=== PATIENT | male | born 1965 | race American Indian/Alaskan Native ===

== ENCOUNTER 2016-07-11 15:25 | Emergency (ER) | payer MEDICAID ==
[2016-07-11 17:16] LABS: Bilirubin,Urine NEG (Negative); Blood,Urine NEG (Negative); Ketones,Urine NEG (Negative); Leukocyte Esterase,Urine NEG (Negative); Mucus,Urine FEW /HPF; Nitrite,Urine NEG (Negative); Protein,Urine <15 mg/dL mg/dL (Negative); Urobilinogen,Urine < 2.0 mg/dL (<2.0)
[2016-07-11 17:54] LABS: Basophils % (Auto) 1.2 % (0.0-1.8); Eosinophils % (Auto) 2.1 % (0.0-4.3); Hematocrit 42.4 % (35.5-45.6); Hemoglobin 13.9 gm/dl (11.8-15.2); Mean Corpuscular HGB Conc 33 % (32-34); Mean Corpuscular Hemoglobin 32 pg (28-32); Mean Corpuscular Volume 98 fl (84-94); Platelet Count 212 K/mm3 (140-440); Red Blood Count 4.33 M/mm3 (3.65-5.03); Red Cell Distribution Width 13.4 % (13.2-15.2); White Blood Count 7.3 K/mm3 (4.5-11.0)
[2016-07-11 18:11] LABS: Albumin 3.9 g/dL (3.9-5); Albumin/Globulin Ratio 1.4 %; Alkaline Phosphatase 59 units/L (35-129); Anion Gap 18 mmol/L; BUN/Creatinine Ratio 16.66; Bilirubin,Total 0.3 mg/dL (0.1-1.2); Blood Urea Nitrogen 15 mg/dL (9-20); Calcium 8.7 mg/dL (8.4-10.2); Carbon Dioxide 24 mmol/L (22-30); Chloride 103.7 mmol/L (98-107); Glucose 122 mg/dL (75-100); Potassium 3.7 mmol/L (3.6-5.0); Sodium 142 mmol/L (137-145); Total Protein 6.7 g/dL (6.3-8.2)
[2016-07-11 18:25] LABS: Alanine Aminotransferase 37 units/L (7-56)
[2016-07-11] MEDS ORDERED: SUBLIMAZE IV ONE (22:48)
[2016-07-11] MEDS ORDERED: NACL 0.9% 1000 ML 1,000 ML IV ONE (22:48)
[2016-07-11] MEDS ORDERED: ZOFRAN IV ONE (22:48)
--- NOTE | 2016-07-11 22:54 | Emergency Department Report ---
HPI - General Chief Complaint: Dizziness Time Seen by Provider: 07/11/16 22:39 - HPI HPI: Room 19 The patient is a 51-year-old male presenting with a chief complaint of abdominal pain and diarrhea. The patient states his symptoms began 7 days ago with epigastric abdominal pain that is sharp and intermittent in nature. The patient states he also developed diarrhea and has had approximately 4 loose stools today. Patient denies melena. Patient states 2 nights ago he developed nausea vomiting. The patient admits to occasional cold sweats but denies a fever. The patient states today while in [facility] he began to feel dizzy and almost fell, subsequently his financial sales associate brought him to the emergency department for evaluation. The patient states she has had a formed stool today Location: Abdomen Duration: 7 days intermittently Quality: Sharp Severity: Moderate Modifying factors: [see above] Context: [see above] Mode of transportation: [not driving] ED Past Medical Hx - Past Medical History Previous Medical History?: Yes Hx Hypertension: Yes Hx Psychiatric Treatment: Yes (depression) Hx COPD: Yes (no home O2) Additional medical history: chronic back pain and right hip arthritis - Surgical History Past Surgical History?: Yes Additional Surgical History: Right wrist orthopedic repair, left rotator cuff surgery - Family History Family history: no significant - Social History Smoking Status: Former Smoker (none 3 months) Substance Use Type: None (denies illicit drug use) - Medications Home Medications: Home Medications Medication Instructions Recorded Confirmed Last Taken Type amLODIPine [Norvasc] 1 mg PO DAILY 06/19/14 07/12/16 1 Day Ago History 25 Diphenoxylate HCl/Atropine 2 each PO QID PRN #20 tablet 07/12/16 Unknown Rx [Lomotil 2.5-0.025 mg Tablet] traMADol [Ultram] 50 mg PO Q6HR PRN #14 tablet 07/12/16 Unknown Rx ED Review of Systems ROS: Stated complaint: DIZZINESS Other details as noted in HPI Comment: All other systems reviewed and negative Constitutional: chills. denies: fever Eyes: denies: eye pain, eye discharge, vision change ENT: denies: ear pain, throat pain Respiratory: denies: cough, shortness of breath, wheezing Cardiovascular: denies: chest pain, palpitations Endocrine: no symptoms reported Gastrointestinal: abdominal pain, nausea, vomiting, diarrhea Genitourinary: denies: urgency, dysuria Musculoskeletal: myalgia Skin: denies: rash, lesions Neurological: denies: headache, weakness, paresthesias Psychiatric: denies: anxiety, depression Hematological/Lymphatic: denies: easy bleeding, easy bruising Physical Exam - Physical Exam Vital Signs: Vital Signs 07/11/16 07/11/16 07/11/16 16:25 16:30 22:39 Temperature 98.1 F Pulse Rate 87 80 Respiratory 20 18 Rate Blood Pressure 133/89 Blood Pressure 120/81 122/83 [Right] O2 Sat by Pulse 96 97 Oximetry 07/11/16 22:41 Temperature Pulse Rate Respiratory 18 Rate Blood Pressure Blood Pressure [Right] O2 Sat by Pulse 97 Oximetry Physical Exam: GENERAL: The patient is well-developed well-nourished male lying on stretcher not appearing to be in acute distress. [] HEENT: Normocephalic. Atraumatic. Extraocular motions are intact. NECK: Supple. Trachea midline CHEST/LUNGS: Clear to auscultation. There is no respiratory distress noted. HEART/CARDIOVASCULAR: Regular. There is no tachycardia. There is no gallop rub or murmur. ABDOMEN: Abdomen is soft, with mild discomfort to palpation in the epigastric region only. Abdomen is otherwise soft and nontender. Patient has normal bowel sounds. There is no abdominal distention. SKIN: There is no rash. There is no edema. There is no diaphoresis. NEURO: The patient is awake, alert, and oriented. The patient is cooperative. The patient has normal speech MUSCULOSKELETAL: There is no evidence of acute injury. ED Course Vital Signs 07/11/16 07/11/16 07/11/16 16:25 16:30 22:39 Temperature 98.1 F Pulse Rate 87 80 Respiratory 20 18 Rate Blood Pressure 133/89 Blood Pressure 120/81 122/83 [Right] O2 Sat by Pulse 96 97 Oximetry 07/11/16 22:41 Temperature Pulse Rate Respiratory 18 Rate Blood Pressure Blood Pressure [Right] O2 Sat by Pulse 97 Oximetry ED Medical Decision Making - Lab Data Result diagrams: 07/11/16 17:38 07/11/16 17:38 Laboratory Tests 07/11/16 07/11/16 07/11/16 16:40 17:38 17:38 WBC 7.3 RBC 4.33 Hgb 13.9 Hct 42.4 MCV 98 H MCH 32 MCHC 33 RDW 13.4 Plt Count 212 Lymph % (Auto) 25.7 Baker % (Auto) 7.7 H Eos % (Auto) 2.1 Baso % (Auto) 1.2 Lymph # 1.9 Baker # 0.6 Eos # 0.2 Baso # 0.1 Seg Neutrophils % 63.3 Seg Neutrophils # 4.6 Sodium 142 Potassium 3.7 Chloride 103.7 Carbon Dioxide 24 Anion Gap 18 BUN 15 Creatinine 0.9 Estimated GFR > 60 BUN/Creatinine Ratio 16.66 Glucose 122 H Calcium 8.7 Total Bilirubin 0.3 AST 40 ALT 37 Alkaline Phosphatase 59 Total Creatine Kinase CK-MB (CK-2) CK-MB (CK-2) Rel Index Troponin T Total Protein 6.7 Albumin 3.9 Albumin/Globulin Ratio 1.4 Amylase Lipase Urine Color Yellow Urine Turbidity Clear Urine pH 5.0 Ur Specific [place] 1.020 Urine Protein <15 mg/dl Urine Glucose (UA) Neg Urine Ketones Neg Urine Blood Neg Urine Nitrite Neg Urine Bilirubin Neg Urine Urobilinogen < 2.0 Ur Leukocyte Esterase Neg Urine WBC (Auto) 0.0 Urine RBC (Auto) 2.0 Urine Mucus Few 07/11/16 07/11/16 22:39 22:40 WBC RBC Hgb Hct MCV MCH MCHC RDW Plt Count Lymph % (Auto) Baker % (Auto) Eos % (Auto) Baso % (Auto) Lymph # Baker # Eos # Baso # Seg Neutrophils % Seg Neutrophils # Sodium Potassium Chloride Carbon Dioxide Anion Gap BUN Creatinine Estimated GFR BUN/Creatinine Ratio Glucose Calcium Total Bilirubin AST ALT Alkaline Phosphatase Total Creatine Kinase 942 H CK-MB (CK-2) 4.6 H CK-MB (CK-2) Rel Index 0.4 Troponin T < 0.010 Total Protein Albumin Albumin/Globulin Ratio Amylase 90 Lipase 43 Urine Color Urine Turbidity Urine pH Ur Specific [place] Urine Protein Urine Glucose (UA) Urine Ketones Urine Blood Urine Nitrite Urine Bilirubin Urine Urobilinogen Ur Leukocyte Esterase Urine WBC (Auto) Urine RBC (Auto) Urine Mucus - EKG Data -: EKG Interpreted by Me EKG shows normal: sinus rhythm Rate: normal - EKG Data When compared to previous EKG there are: previous EKG unavailable Interpretation: normal EKG - Radiology Data Radiology results: report reviewed (CT abdomen and pelvis), image reviewed (CT abdomen and pelvis) CT abdomen and pelvis (read by radiologist)-left renal cyst. Findings suggestive of constipation. - Differential Diagnosis pancreatitis, gastroenteritis, peptic ulcer disease, ACS Critical care attestation.: If time is entered above; I have spent that time in minutes in the direct care of this critically ill patient, excluding procedure time. ED Disposition Clinical Impression: Diarrhea, Abdominal pain Disposition: DISCHARGED TO HOME OR SELFCARE Is pt being admited?: No Does the pt Need Aspirin: No Condition: Stable Instructions: Acute Diarrhea (ED), Abdominal Pain (ED) Additional Instructions: Return to the emergency department immediately should you develop worsening symptoms, fever, inability to tolerate food or liquid or any other concerns. Prescriptions: Diphenoxylate HCl/Atropine [Lomotil 2.5-0.025 mg Tablet] 2 each PO QID PRN #20 tablet PRN Reason: Diarrhea traMADol [Ultram] 50 mg PO Q6HR PRN #14 tablet PRN Reason: Pain Referrals: PRIMARY CARE,MD [Primary Care Provider] - 3-5 Days LETITIA SOUZA MD [Staff Physician] - 3-5 Days (Dr. Souza is a central sterile technician. Please follow up with him for further evaluation) Time of Disposition: 02:27
[2016-07-11 22:59] LABS: Creatine Kinase MB 4.6 ng/mL (0.0-4.0)
[2016-07-11 23:00] LABS: Creatine Kinase 942 units/L (55-170); Lipase 43 units/L (13-60)
--- NOTE | 2016-07-12 02:08 | Cat Scan Report ---
FINAL REPORT EXAM: CT ABDOMEN PELVIS W CON HISTORY: epigastric abdominal pain, nausea vomiting diarrhe TECHNIQUE: Spiral CT scanning of the abdomen and pelvis after the uneventful administration of IV contrast. Multiplanar reformations. 100 mL Omnipaque IV. PRIORS: 27 August 2015. FINDINGS: Abdomen: Visualized lung bases show mild atelectatic change or scarring bilaterally. Mild cardiomegaly. No radiopaque gallstones. Liver without significant abnormality. Spleen without significant abnormality. Pancreas without significant abnormality. Left renal cyst measures approximately 1.4 cm about the same. Right kidney grossly unremarkable. Adrenal glands without significant abnormality. Pelvis: Bowel grossly unremarkable, with moderate-large amount of retained stool. Appendix within normal limits. No significant free peritoneal fluid or apparent adenopathy. Abdominal aorta non-aneurysmal. Degenerative changes in thoracolumbar spine. IMPRESSION: 1. Left renal cyst. 2. Findings suggestive of constipation.
[2016-07-12 02:11] VITALS: BP 122/72
== END 2016-07-12 02:51 | disposition home or self-care (01) ==
LOC: ED 15:25
DX: R10.13 Epigastric pain (principal); R19.7 Diarrhea, unspecified; I10 Essential (primary) hypertension; J44.9 Chronic obstructive pulmonary disease, unspecified; F32.9 Major depressive disorder, single episode, unspecified; Z87.891 Personal history of nicotine dependence
CPT/HCPCS: 36415; 74177; 80053; 81001; 82150; 82550; 82553; 83690; 84484; 85025; 93005; 93010; 96361; 96374; 96375; 99284; J2405; J3010; J7030; Q9967

== ENCOUNTER 2016-07-20 20:11 | Emergency (ER) | payer MEDICAID ==
[2016-07-20] MEDS ORDERED: TORADOL IM ONE (22:38)
[2016-07-20] MEDS ORDERED: NORCO 5/325 PO ONE (22:38)
--- NOTE | 2016-07-20 22:47 | Emergency Department Report ---
ED Back Pain/Injury HPI - General Chief Complaint: Extremity Injury, Upper Stated Complaint: NECK/BACK PAIN Time Seen by Provider: 07/20/16 21:34 Source: patient Limitations: No Limitations - History of Present Illness Initial Comments: 51-year-old male past medical history cervical radiculopathy, chronic back pain , herniated disks presents with complaint of one day of radiating pain from his lower back and neck. Patient denies any falls denies any acute trauma. Denies any loss of bladder or bowel control denies any saddle paresthesias. Patient is fully ambulatory without assistance. Patient states that he is feeling the chronic pain that he experiences on a semi-frequent basis every few weeks, states he has pain with associated tingling down bilateral arms radiating from neck, also has similar symptoms radiating from lower back down to both buttock regions. Patient states he had an MRI a year ago at [facility] which showed multiple herniated disks in his cervical and lumbar spine. Patient states that he has not medicated himself with any [id number] medicines for pain. Denies having had follow-up with a orthopedic surgeon or neurosurgeon for herniated disks. Denies nausea no vomiting no dysuria no fever no chills, denies any chest pain, palpitations no shortness of breath. Denies any photo or phonophobia, patient is able to flex and extend his neck without difficulty but it does reproduce the pain. Patient states that bending down or flexing his back makes pain in his lower back worse. MD Complaint: back pain -: year(s) (5) Similar Symptoms Previously: Yes Place: home Radiation: buttocks, left leg, right leg Severity: moderate Severity scale (0 -10): 7 Quality: aching, tingling Improves With: none Worsens With: none Context: while lifting, turning/twisting, bending - Related Data Home Medications Medication Instructions Recorded Confirmed Last Taken amLODIPine [Norvasc] 1 mg PO DAILY 06/19/14 07/12/16 1 Day Ago 25 Previous Rx's Medication Instructions Recorded Last Taken Type Diphenoxylate HCl/Atropine 2 each PO QID PRN #20 tablet 07/12/16 Unknown Rx [Lomotil 2.5-0.025 mg Tablet] traMADol [Ultram] 50 mg PO Q6HR PRN #14 tablet 07/12/16 Unknown Rx HYDROcodone/APAP 5-325 [[place] 1 each PO Q6HR PRN #12 tablet 07/20/16 Unknown Rx 5/325] Naproxen [Naproxen TAB] 250 mg PO BID PRN #20 tablet 07/20/16 Unknown Rx Allergies Allergy/AdvReac Type Severity Reaction Status Date / Time ibuprofen Allergy Hives Verified 12/16/15 11:36 Penicillins Allergy Shortness Verified 12/16/15 11:36 of Breath ED Review of Systems ROS: Stated complaint: NECK/BACK PAIN Other details as noted in HPI ED Past Medical Hx - Past Medical History Hx Hypertension: Yes Hx Psychiatric Treatment: Yes (depression) Hx COPD: Yes (no home O2) Additional medical history: chronic back pain and right hip arthritis - Surgical History Additional Surgical History: Right wrist orthopedic repair, left rotator cuff surgery - Social History Smoking Status: Former Smoker (none 3 months) Substance Use Type: None (denies illicit drug use) - Medications Home Medications: Home Medications Medication Instructions Recorded Confirmed Last Taken Type amLODIPine [Norvasc] 1 mg PO DAILY 06/19/14 07/12/16 1 Day Ago History 25 Diphenoxylate HCl/Atropine 2 each PO QID PRN #20 tablet 07/12/16 Unknown Rx [Lomotil 2.5-0.025 mg Tablet] traMADol [Ultram] 50 mg PO Q6HR PRN #14 tablet 07/12/16 Unknown Rx HYDROcodone/APAP 5-325 [[place] 1 each PO Q6HR PRN #12 tablet 07/20/16 Unknown Rx 5/325] Naproxen [Naproxen TAB] 250 mg PO BID PRN #20 tablet 07/20/16 Unknown Rx ED Physical Exam - General Limitations: No Limitations ED Course Vital Signs 07/20/16 07/20/16 20:53 23:37 Temperature 97.7 F Pulse Rate 79 72 Respiratory 18 16 Rate Blood Pressure 151/106 Blood Pressure 123/79 [Left] O2 Sat by Pulse 100 95 Oximetry ED Medical Decision Making - Medical Decision Making A/P: Acute on chronic cervical radiculopathy, lumbar radiculopathy 1-will refer patient to primary care and orthopedics for follow-up 2-patient has no signs of cord compression or cauda equina no bladder overflow no bowel incontinence has good rectal tone and able to ambulate independently without assistance. I educated pt on symptoms of cord compression and advised him to return Shahbaz fro any signs of paralysis, bowel or bladder incontinence 3-Case d/w Dr. Terry 4-naproxen and norco short course PRN for pain Critical care attestation.: If time is entered above; I have spent that time in minutes in the direct care of this critically ill patient, excluding procedure time. ED Disposition Clinical Impression: Cervical radicular pain, Lumbar radicular pain Disposition: DISCHARGED TO HOME OR SELFCARE Is pt being admited?: No Does the pt Need Aspirin: No Condition: Stable Instructions: Lumbar Radiculopathy (ED), Cervical Radiculopathy (ED) Prescriptions: HYDROcodone/APAP 5-325 [[place] 5/325] 1 each PO Q6HR PRN #12 tablet PRN Reason: Pain Naproxen [Naproxen TAB] 250 mg PO BID PRN #20 tablet PRN Reason: Pain Referrals: ROZ ROCHA MD [Staff Physician] - 3-5 Days TONJA ZUNIGA MD [Staff Physician] - 3-5 Days [facility] [Provider Group] - 3-5 Days Time of Disposition: 23:30
[2016-07-20 23:38] VITALS: BP 123/79
== END 2016-07-20 23:44 | disposition home or self-care (01) ==
LOC: ED 20:11
DX: M54.12 Radiculopathy, cervical region (principal); M54.16 Radiculopathy, lumbar region; I10 Essential (primary) hypertension; F32.9 Major depressive disorder, single episode, unspecified; J44.9 Chronic obstructive pulmonary disease, unspecified; G89.29 Other chronic pain; M16.11 Unilateral primary osteoarthritis, right hip; Z87.891 Personal history of nicotine dependence; Z88.6 Allergy status to analgesic agent; Z88.0 Allergy status to penicillin; Z79.899 Other long term (current) drug therapy
CPT/HCPCS: 96372; 99282; J1885

== ENCOUNTER 2016-09-23 14:30 | Emergency (ER) | payer MEDICAID ==
--- NOTE | 2016-09-23 19:27 | Cat Scan Report ---
FINAL REPORT EXAM: CT HEAD/BRAIN WO CON HISTORY: worsened headache TECHNIQUE: Noncontrast serial axial images from skull base to vertex. PRIORS: None. FINDINGS: There is no mass effect or midline shift. There are no abnormal intra or extra-axial fluid collections. Cortical sulci and lateral ventricles are within normal limits for size and configuration. Basilar cisterns are patent. No acute intracranial hemorrhage is identified. Visualized paranasal sinuses and mastoid air cells are well aerated. No acute osseous abnormality is identified. IMPRESSION: 1. No abnormal mass or acute intracranial hemorrhage is identified.
[2016-09-23] MEDS ORDERED: REGLAN PO ONE (19:36)
[2016-09-23 20:18] VITALS: BP 124/84
--- NOTE | 2016-09-23 22:19 | Emergency Department Report ---
Entered by ANUJ FERGUSON, acting as scribe for HAYES CARDOSO PA. ED Headache HPI - General Chief Complaint: Headache Stated Complaint: LOW BACK PAIN Source: patient Exam Limitations: no limitations - History of Present Illness Initial Comments: 51 year old male with a PMHx of HTN, chronic back pain, and depression presents to the ED c/o an headache x 1 month that comes and goes and has been persistent for the past 2 days. Rates headache as a 7/10 in severity, which describe as sharp in quality. Associated symptoms include dizziness and floaters, but denies fever, chills, nausea, vomiting, chest pain, abdominal pain, numbness, tingling, and SOB. Denies any recent head injury or trauma. 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 He denies any change in or worsening of symptoms. He was prescribed Nortriptyline HCl for symptoms, which he took with no relief. Notes he is scheduled for a MRI on 09/30. Patient was told by neurologist to go to the nearest ER, but he does not recall for what particular circumstances. Patient is ambulatory using a cane. Allergic to Ibuprofen and penicillins. Initially patient had reported no worsening in symptoms but upon re-evaluation, patient reports that the headache has worsened. Timing/Duration: other (2 days) Quality: moderate, sharp Head Injury Location: frontal, parietal Recent Head Trauma: no recent headache/trauma Associated Symptoms: vision changes, other (dizziness). denies: facial pain, fever/chills, loss of consciousness, nausea/vomiting, nasal congestion, nasal drainage, numbness in legs/feet, stiff neck Allergies/Adverse Reactions: Allergies ibuprofen Allergy (Verified 12/16/15 11:36) Hives Penicillins Allergy (Verified 12/16/15 11:36) Shortness of Breath Home Medications: Ambulatory Orders amLODIPine [Norvasc] 1 mg PO DAILY 06/19/14 Diphenoxylate HCl/Atropine [Lomotil 2.5-0.025 mg Tablet] 2 each PO QID PRN #20 tablet 07/12/16 traMADol [Ultram] 50 mg PO Q6HR PRN #14 tablet 07/12/16 HYDROcodone/APAP 5-325 [[place] 5/325] 1 each PO Q6HR PRN #12 tablet 07/20/16 Naproxen [Naproxen TAB] 250 mg PO BID PRN #20 tablet 07/20/16 ED Review of Systems Comment: All other systems reviewed and negative Constitutional: denies: chills, fever Eyes: denies: eye pain ENT: denies: ear pain, throat pain, congestion Respiratory: denies: cough, shortness of breath Cardiovascular: denies: chest pain, palpitations Endocrine: no symptoms reported Gastrointestinal: denies: abdominal pain, nausea, vomiting Musculoskeletal: back pain (chronic) Skin: denies: rash Neurological: headache. denies: weakness, numbness, paresthesias ED Past Medical Hx - Past Medical History Previous Medical History?: Yes Hx Hypertension: Yes Hx Psychiatric Treatment: Yes (depression) Hx COPD: Yes (no home O2) Additional medical history: chronic back pain and right hip arthritis - Surgical History Past Surgical History?: Yes Additional Surgical History: Right wrist orthopedic repair, left rotator cuff surgery - Social History Smoking Status: Never Smoker Substance Use Type: None - Medications Home Medications: Home Medications Medication Instructions Recorded Confirmed Last Taken Type amLODIPine [Norvasc] 1 mg PO DAILY 06/19/14 07/12/16 1 Day Ago History 25 Diphenoxylate HCl/Atropine 2 each PO QID PRN #20 tablet 07/12/16 Unknown Rx [Lomotil 2.5-0.025 mg Tablet] traMADol [Ultram] 50 mg PO Q6HR PRN #14 tablet 07/12/16 Unknown Rx HYDROcodone/APAP 5-325 [[place] 1 each PO Q6HR PRN #12 tablet 07/20/16 Unknown Rx 5/325] Naproxen [Naproxen TAB] 250 mg PO BID PRN #20 tablet 07/20/16 Unknown Rx ED Physical Exam - General Limitations: Physical Limitation General appearance: alert, in no apparent distress - Head Head exam: Present: atraumatic, normocephalic, normal inspection - Expanded Head Exam Expanded Head exam: Present: general tenderness. Absent: laceration, abrasion, contusion , hematoma, tenderness of temporal artery - Eye Eye exam: Present: normal appearance, PERRL, EOMI. Absent: conjunctival injection Pupils: Present: normal accommodation - ENT ENT exam: Present: normal exam, mucous membranes moist - Neck Neck exam: Present: normal inspection, full ROM. Absent: tenderness, lymphadenopathy - Respiratory Respiratory exam: Present: normal lung sounds bilaterally. Absent: respiratory distress, wheezes, rales, rhonchi, stridor - Cardiovascular Cardiovascular Exam: Present: regular rate, normal rhythm. Absent: systolic murmur, diastolic murmur, rubs, gallop - GI/Abdominal GI/Abdominal exam: Present: soft. Absent: distended, tenderness, guarding, rebound, rigid - Extremities Exam Extremities exam: Present: normal inspection, full ROM - Back Exam Back exam: Present: normal inspection, full ROM - Neurological Exam Neurological exam: Present: alert, oriented X3, CN II-XII intact, normal gait. Absent: motor sensory deficit - Expanded Neurological Exam Expanded Patient oriented to: Present: person, place, time Speech: Present: fluid speech Cranial nerves: EOM's Intact: Normal, Gag Reflex: Normal, Tongue Deviation: Normal, Facial Sensation: Normal Cerebellar function: Finger to Nose: Normal Sensory exam: Upper Extremity Light Touch: Normal, Lower Extremity Light Touch: Normal Motor strength exam: RUE: 5, LUE: 4 (not new, present at the time of neuro consult), RLE: 5, LLE: 5 Best Eye Response (Jonathan): (4) open spontaneously Best Motor Response (Jonathan): (6) obeys commands Best Verbal Response ([place]): (5) oriented Jonathan Total: 15 - Psychiatric Psychiatric exam: Present: normal affect, normal mood - Skin Skin exam: Present: warm, dry, intact. Absent: rash ED Course Vital Signs 09/23/16 09/23/16 15:19 20:16 Temperature 97.7 F 97.7 F Pulse Rate 85 85 Respiratory 18 18 Rate Blood Pressure 124/86 Blood Pressure 124/84 [Right] O2 Sat by Pulse 100 100 Oximetry ED Medical Decision Making - Lab Data Vital Signs 09/23/16 15:19 Temperature 97.7 F Pulse Rate 85 Respiratory 18 Rate Blood Pressure 124/86 O2 Sat by Pulse 100 Oximetry - Radiology Data Radiology results: report reviewed EXAM: CT HEAD/BRAIN WO CON HISTORY: worsened headache TECHNIQUE: Noncontrast serial axial images from skull base to vertex. PRIORS: None. FINDINGS: There is no mass effect or midline shift. There are no abnormal intra or extra-axial fluid collections. Cortical sulci and lateral ventricles are within normal limits for size and configuration. Basilar cisterns are patent. No acute intracranial hemorrhage is identified. Visualized paranasal sinuses and mastoid air cells are well aerated. No acute osseous abnormality is identified. IMPRESSION: 1. No abnormal mass or acute intracranial hemorrhage is identified. - Medical Decision Making 51-year-old male presents today complaining of headache that comes and goes 1 month. Patient is currently following up with [facility]. At time of reevaluation patient states that his symptoms have worsened for the past [address] results reveal no acute findings. Patient was given Reglan and reported some symptomatic relief post medication. He is recommended to follow up with his neurologist for further evaluation and treatment. Patient is in no acute distress at this time. He will be discharged home and is encouraged to follow up with a primary care provider. He is encouraged to return to the emergency room for any worsening symptoms. ED Disposition Clinical Impression: Headache Disposition: DISCHARGED TO HOME OR SELFCARE Is pt being admited?: No Does the pt Need Aspirin: No Condition: Stable Instructions: Acute Headache (ED) Additional Instructions: Follow-up with primary care provider and neurologist. Return to the emergency department if symptoms worsen. Referrals: PRIMARY CARE, [Primary Care Provider] - 3-5 Days FÁTIMA LARA MD [Staff Physician] - 3-5 Days Forms: Work/School Release Form(ED) Time of Disposition: 19:55 This documentation as recorded by the PHYLLIS zapata JASMINE,accurately reflects the service I personally performed and the decisions made by ,HAEYS CARDOSO PA.
== END 2016-09-23 20:16 | disposition home or self-care (01) ==
LOC: ED 14:30
DX: R51 Headache (principal); I10 Essential (primary) hypertension; F32.9 Major depressive disorder, single episode, unspecified; J44.9 Chronic obstructive pulmonary disease, unspecified; G89.29 Other chronic pain; Z88.0 Allergy status to penicillin; Z88.6 Allergy status to analgesic agent
CPT/HCPCS: 70450

== ENCOUNTER 2016-10-28 21:28 | Emergency (ER) | payer MEDICAID ==
[2016-10-28 22:17] LABS: Basophils % (Auto) 0.9 % (0.0-1.8); Eosinophils % (Auto) 2.9 % (0.0-4.3); Hematocrit 49.5 % (35.5-45.6); Hemoglobin 16.1 gm/dl (11.8-15.2); Mean Corpuscular HGB Conc 33 % (32-34); Mean Corpuscular Hemoglobin 32 pg (28-32); Mean Corpuscular Volume 98 fl (84-94); Platelet Count 188 K/mm3 (140-440); Red Blood Count 5.05 M/mm3 (3.65-5.03); Red Cell Distribution Width 13.8 % (13.2-15.2); White Blood Count 8.5 K/mm3 (4.5-11.0)
[2016-10-28 22:28] LABS: Anion Gap 17 mmol/L; BUN/Creatinine Ratio 10.83; Blood Urea Nitrogen 13 mg/dL (9-20); Calcium 9.3 mg/dL (8.4-10.2); Carbon Dioxide 25 mmol/L (22-30); Chloride 102.4 mmol/L (98-107); Glucose 96 mg/dL (75-100); Potassium 3.5 mmol/L (3.6-5.0); Sodium 141 mmol/L (137-145)
[2016-10-28 23:21] LABS: Urine Drugs of Abuse Note Disclamer
[2016-10-28 23:41] LABS: Bilirubin,Urine NEG (Negative); Blood,Urine NEG (Negative); Ketones,Urine NEG (Negative); Leukocyte Esterase,Urine NEG (Negative); Mucus,Urine FEW /HPF; Nitrite,Urine NEG (Negative); Protein,Urine <15 mg/dL mg/dL (Negative); Urobilinogen,Urine < 2.0 mg/dL (<2.0); WBC,Urine < 1.0 /HPF (0.0-6.0)
--- NOTE | 2016-10-29 07:16 | Emergency Department Report ---
ED General Adult HPI - General Chief complaint: Psych Stated complaint: MH/THOUGHTS OF HURTING SELF Time Seen by Provider: 10/29/16 07:15 Source: patient Mode of arrival: Ambulatory Limitations: No Limitations - History of Present Illness Initial comments: The patient states that he is depressed and is having suicidal thoughts. His not made a plan or actually done anything to hurt himself. He said a previous psychiatric hospitalization for depression. He has never actually committed any acts of self-harm. He initially denied cocaine abuse. However when I informed him that his urine was positive for cocaine, he did tell me he went to a green party last weekend (it is Tuesday today). He was forthcoming about his homelessness. He states he has a father and uncle in the city but he can no longer stay with them. -: year(s) Location: back (chronic back pain but not now) Consistency: intermittent Improves with: none Worsens with: none Associated Symptoms: denies other symptoms Treatments Prior to Arrival: none - Related Data Home Medications Medication Instructions Recorded Confirmed Last Taken amLODIPine [Norvasc] 1 mg PO DAILY 06/19/14 07/12/16 1 Day Ago 25 Previous Rx's Medication Instructions Recorded Last Taken Type Diphenoxylate HCl/Atropine 2 each PO QID PRN #20 tablet 07/12/16 Unknown Rx [Lomotil 2.5-0.025 mg Tablet] traMADol [Ultram] 50 mg PO Q6HR PRN #14 tablet 07/12/16 Unknown Rx HYDROcodone/APAP 5-325 [[place] 1 each PO Q6HR PRN #12 tablet 07/20/16 Unknown Rx 5/325] Naproxen [Naproxen TAB] 250 mg PO BID PRN #20 tablet 07/20/16 Unknown Rx Allergies Allergy/AdvReac Type Severity Reaction Status Date / Time ibuprofen Allergy Hives Verified 12/16/15 11:36 Penicillins Allergy Shortness Verified 12/16/15 11:36 of Breath ED Review of Systems ROS: Stated complaint: MH/THOUGHTS OF HURTING SELF Other details as noted in HPI Constitutional: denies: chills, fever Eyes: denies: eye pain, eye discharge, vision change ENT: denies: ear pain, throat pain Respiratory: denies: cough, shortness of breath, wheezing Cardiovascular: denies: chest pain, palpitations Endocrine: no symptoms reported Gastrointestinal: denies: abdominal pain, nausea, diarrhea Genitourinary: denies: urgency, dysuria Musculoskeletal: back pain. denies: joint swelling, arthralgia Skin: denies: rash, lesions Neurological: denies: headache, weakness, paresthesias Psychiatric: depression, suicidal thoughts. denies: anxiety Hematological/Lymphatic: denies: easy bleeding, easy bruising ED Past Medical Hx - Past Medical History Previous Medical History?: Yes Hx Hypertension: Yes Hx CVA: Yes Hx Psychiatric Treatment: Yes (depression paroid pschizophrenia) Hx COPD: Yes (no home O2) Additional medical history: chronic back pain and right hip arthritis - Surgical History Past Surgical History?: Yes Additional Surgical History: Right wrist orthopedic repair, left rotator cuff surgery - Social History Smoking Status: Current Some Day Smoker Substance Use Type: Alcohol, Prescribed - Medications Home Medications: Home Medications Medication Instructions Recorded Confirmed Last Taken Type amLODIPine [Norvasc] 1 mg PO DAILY 06/19/14 07/12/16 1 Day Ago History 25 Diphenoxylate HCl/Atropine 2 each PO QID PRN #20 tablet 07/12/16 Unknown Rx [Lomotil 2.5-0.025 mg Tablet] traMADol [Ultram] 50 mg PO Q6HR PRN #14 tablet 07/12/16 Unknown Rx HYDROcodone/APAP 5-325 [[place] 1 each PO Q6HR PRN #12 tablet 07/20/16 Unknown Rx 5/325] Naproxen [Naproxen TAB] 250 mg PO BID PRN #20 tablet 07/20/16 Unknown Rx ED Physical Exam - General Limitations: No Limitations General appearance: alert, in no apparent distress - Head Head exam: Present: atraumatic, normocephalic - Eye Eye exam: Present: normal appearance. Absent: scleral icterus - ENT ENT exam: Present: mucous membranes moist - Neck Neck exam: Present: normal inspection - Respiratory Respiratory exam: Present: normal lung sounds bilaterally. Absent: respiratory distress - Cardiovascular Cardiovascular Exam: Present: regular rate, normal rhythm. Absent: systolic murmur, diastolic murmur, rubs, gallop - GI/Abdominal GI/Abdominal exam: Present: soft, normal bowel sounds. Absent: distended, tenderness, guarding, rebound, rigid - Rectal Rectal exam: Present: deferred - Extremities Exam Extremities exam: Present: normal inspection - Back Exam Back exam: Present: normal inspection - Neurological Exam Neurological exam: Present: alert, oriented X3. Absent: CN II-XII intact - Psychiatric Psychiatric exam: Present: normal affect, normal mood - Skin Skin exam: Present: warm, dry, intact, normal color. Absent: rash ED Course Vital Signs 10/28/16 10/29/16 10/29/16 21:52 02:13 06:33 Temperature 97.8 F 97.7 F Pulse Rate 102 H 80 Respiratory 20 18 18 Rate Blood Pressure 141/102 151/112 Blood Pressure 141/102 [Right] O2 Sat by Pulse 97 98 Oximetry 10/29/16 10/29/16 10/29/16 11:42 13:34 13:40 Temperature 98 F Pulse Rate 83 Respiratory 18 18 18 Rate Blood Pressure Blood Pressure 166/106 [Right] O2 Sat by Pulse 99 99 99 Oximetry - Reevaluation(s) Reevaluation #1: Patient will be evaluated by mental health counselor. 10/29/16 08:15 Reevaluation #2: The patient was transferred to [place] facility for further care and stabilization 10/29/16 14:51 ED Medical Decision Making - Lab Data Result diagrams: 10/28/16 22:00 10/28/16 22:00 Laboratory Results - last 24 hr 10/28/16 10/28/16 10/28/16 22:00 22:00 22:00 WBC 8.5 RBC 5.05 H Hgb 16.1 H Hct 49.5 H MCV 98 H MCH 32 MCHC 33 RDW 13.8 Plt Count 188 Lymph % (Auto) 26.4 Rich % (Auto) 8.2 H Eos % (Auto) 2.9 Baso % (Auto) 0.9 Lymph # 2.2 Rich # 0.7 Eos # 0.2 Baso # 0.1 Seg Neutrophils % 61.6 Seg Neutrophils # 5.3 Sodium 141 Potassium 3.5 L Chloride 102.4 Carbon Dioxide 25 Anion Gap 17 BUN 13 Creatinine 1.2 Estimated GFR > 60 BUN/Creatinine Ratio 10.83 Glucose 96 Calcium 9.3 Urine Color Urine Turbidity Urine pH Ur Specific [place] Urine Protein Urine Glucose (UA) Urine Ketones Urine Blood Urine Nitrite Urine Bilirubin Urine Urobilinogen Ur Leukocyte Esterase Urine WBC (Auto) Urine RBC (Auto) Urine Mucus Urine Opiates Screen Urine Methadone Screen Ur Barbiturates Screen Ur Phencyclidine Scrn Ur Amphetamines Screen U Benzodiazepines Scrn Urine Cocaine Screen U Marijuana (THC) Screen Drugs of Abuse Note Plasma/Serum Alcohol < 0.01 10/28/16 10/28/16 22:40 22:40 WBC RBC Hgb Hct MCV MCH MCHC RDW Plt Count Lymph % (Auto) Rich % (Auto) Eos % (Auto) Baso % (Auto) Lymph # Rich # Eos # Baso # Seg Neutrophils % Seg Neutrophils # Sodium Potassium Chloride Carbon Dioxide Anion Gap BUN Creatinine Estimated GFR BUN/Creatinine Ratio Glucose Calcium Urine Color Yellow Urine Turbidity Clear Urine pH 6.0 Ur Specific [place] 1.023 Urine Protein <15 mg/dl Urine Glucose (UA) Neg Urine Ketones Neg Urine Blood Neg Urine Nitrite Neg Urine Bilirubin Neg Urine Urobilinogen < 2.0 Ur Leukocyte Esterase Neg Urine WBC (Auto) < 1.0 Urine RBC (Auto) 1.0 Urine Mucus Few Urine Opiates Screen Presumptive negative Urine Methadone Screen Presumptive negative Ur Barbiturates Screen Presumptive negative Ur Phencyclidine Scrn Presumptive negative Ur Amphetamines Screen Presumptive negative U Benzodiazepines Scrn Presumptive negative Urine Cocaine Screen Presumptive positive U Marijuana (THC) Screen Presumptive negative Drugs of Abuse Note Disclamer Plasma/Serum Alcohol Critical care attestation.: If time is entered above; I have spent that time in minutes in the direct care of this critically ill patient, excluding procedure time. ED Disposition Clinical Impression: Cocaine abuse, Suicidal ideation Depression Qualifiers: Depression Type: unspecified Qualified Code(s): F32.9 - Major depressive disorder, single episode, unspecified Disposition: DC/TX-70 ANOTHER TYPE HLTHCARE Is pt being admited?: No Does the pt Need Aspirin: No Condition: Stable Referrals: DAVION CORTES MD [Primary Care Provider] - 3-5 Days Time of Disposition: 14:52
--- NOTE | 2016-10-29 15:32 | Consultation ---
History of Present Illness - Reason for Consult Consult date: 10/29/16 Reason for consult: Mental Health Evaluation Requesting physician: CAITLYN PEDROZA - Chief Complaint Chief complaint: "I just need help" - History of Present Psychiatric Illness The patient states that he is depressed and is having suicidal thoughts. Today patient is calm and cooperative during the assessment. He stated being suicidal and more depressed since becoming homeless. He stated that his dad put him out of a couple days ago, and now he is homeless. He stated that he feels sad and helpless at this time. He mentioned that he deal with the lost of his , son , and a family member (). 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 He stated that he tried cocaine recently to self medicate and deal with his issues. He stated he is suicidal without a plan. He stated that he never attempted suicide in the past. He stated that he have not taking his medications in 3 weeks (depakote and zoloft). He states that he hear voices when he is stressed. He stated that voices are telling him to do harmful things to himself. He did admit to sleep disturbance the last past days, but his appetite is "okay." He stated that he drink beer sometimes. Medications and Allergies Allergies Allergy/AdvReac Type Severity Reaction Status Date / Time ibuprofen Allergy Hives Verified 12/16/15 11:36 Penicillins Allergy Shortness Verified 12/16/15 11:36 of Breath Home Medications Medication Instructions Recorded Confirmed Last Taken Type amLODIPine [Norvasc] 1 mg PO DAILY 06/19/14 07/12/16 1 Day Ago History 25 Diphenoxylate HCl/Atropine 2 each PO QID PRN #20 tablet 07/12/16 Unknown Rx [Lomotil 2.5-0.025 mg Tablet] traMADol [Ultram] 50 mg PO Q6HR PRN #14 tablet 07/12/16 Unknown Rx HYDROcodone/APAP 5-325 [[place] 1 each PO Q6HR PRN #12 tablet 07/20/16 Unknown Rx 5/325] Naproxen [Naproxen TAB] 250 mg PO BID PRN #20 tablet 07/20/16 Unknown Rx Past psychiatric history - Past Medical History Past Medical History: hypertension, other (Chronic Back Pain) Past Surgical History: Other (Left Shoulder Surgey) - past Psychiatric treatment and history Psych: Bipolar, Depression, Schizophrenia psychiatric treatment history: Stated that he been to inpatient once ([facility] – [place]). He denies a fam psy hx. - Social History Social history: other (GED, Homeless) Mental Status Exam - Vital signs Last Vital Signs Temp 98 F 10/29/16 11:42 Pulse 83 10/29/16 11:42 Resp 18 10/29/16 13:40 BP 166/106 10/29/16 11:42 Pulse Ox 99 10/29/16 13:40 - Exam Narrative exam: ROS: (+) depression MSE: Appearance: calm, cooperative Behavior: good eye contact Speech: regular rate and tone Mood: "I feel down" Affect: congruent to mood Thought Process: circumstantial Thought Content: denies HI's and VH's Motor Activity: lying in bed Cognition: a/ox 3 Insight: fair Judgment: limited Results Result Diagrams: 10/28/16 22:00 10/28/16 22:00 Abnormal lab results 10/28/16 10/28/16 Range/Units 22:00 22:00 RBC 5.05 H (3.65-5.03) M/mm3 Hgb 16.1 H (11.8-15.2) gm/dl Hct 49.5 H (35.5-45.6) % MCV 98 H (84-94) fl [place] % (Auto) 8.2 H (0.0-7.3) % Potassium 3.5 L (3.6-5.0) mmol/L All other labs normal. Assessment and Plan Assessment and plan: Impression: MDD severe type, Substance induced psychosis. SI's without a plan. Today patient is calm and cooperative during the assessment. He stated being suicidal and more depressed since becoming homeless. He stated that his dad put him out of a couple days ago, and now he is homeless. He stated that he feels sad and helpless at this time. He mentioned that he deal with the lost of his , son, and a family member (). Positive for Cocaine. Possible sleep deprivation. DD: R/O Bipolar Historical Diagnosis: Schizoaffective DO Recommendation/Plan: Continue 1013 with placement to inpatient psy services. Start Zoloft 50 mg PO daily for depression and Benadryl 25 mg PO HS PRN for sleep. Discussed possible suicidality and medication induced usha reference antidepressants. Possible start an antipsychotic if voices continue.
[2016-10-29] MEDS ORDERED: ZOLOFT PO SCH (17:00)
[2016-10-29] MEDS ORDERED: BENADRYL PO PRN (17:53)
[2016-10-29 18:18] VITALS: BP 166/111
[2016-10-30] MEDS ORDERED: NORVASC PO SCH (10:00)
== END 2016-10-29 22:24 | disposition other institution (70) ==
LOC: EEVIPCON 21:28 → ED 21:28
DX: R45.851 Suicidal ideations (principal); F14.10 Cocaine abuse, uncomplicated; F32.9 Major depressive disorder, single episode, unspecified; I10 Essential (primary) hypertension; F20.9 Schizophrenia, unspecified; J44.9 Chronic obstructive pulmonary disease, unspecified; F17.200 Nicotine dependence, unspecified, uncomplicated
CPT/HCPCS: 36415; 80048; 80164; 80307; 81001; 85025; 99285; G0480; 80320

== ENCOUNTER 2018-02-01 13:04 | Emergency (ER) | payer MEDICARE ==
[2018-02-01 13:11] VITALS: BP 152/104
--- NOTE | 2018-02-01 15:14 | Emergency Department Report ---
ED Shortness of Breath HPI - General Chief Complaint: Upper Respiratory Infection Stated Complaint: SOB Time Seen by Provider: 02/01/18 15:09 Source: patient Mode of arrival: Ambulatory Limitations: No Limitations - History of Present Illness Initial Comments: She is a 52-year-old male who has a history of chronic bronchitis who is in town visiting his ill father has been out of his albuterol inhalers and has started having some wheezing. Patient states that he takes the place that he stay may have some older softness triggering his bronchitis. Patient states the cough is nonproductive. Patient denies any fever nausea vomiting diarrhea.. - Related Data Home Medications Medication Instructions Recorded Confirmed Last Taken amLODIPine [Norvasc] 1 mg PO DAILY 06/19/14 07/12/16 1 Day Ago ~07/11/16 25 Previous Rx's Medication Instructions Recorded Last Taken Type Diphenoxylate HCl/Atropine 2 each PO QID PRN #20 tablet 07/12/16 Unknown Rx [Lomotil 2.5-0.025 mg Tablet] traMADol [Ultram] 50 mg PO Q6HR PRN #14 tablet 07/12/16 Unknown Rx HYDROcodone/APAP 5-325 [[place] 1 each PO Q6HR PRN #12 tablet 07/20/16 Unknown Rx 5/325] Naproxen [Naproxen TAB] 250 mg PO BID PRN #20 tablet 07/20/16 Unknown Rx ALBUTEROL Inhaler (OR & NICU) 2 puff IH QID PRN #1 inhalation 02/01/18 Unknown Rx [ProAir HFA Inhaler] Benzonatate [Tessalon Perles] 100 mg PO Q8HR #10 capsule 02/01/18 Unknown Rx predniSONE [Deltasone] 20 mg PO QDAY #5 tab 02/01/18 Unknown Rx Allergies Allergy/AdvReac Type Severity Reaction Status Date / Time ibuprofen Allergy Hives Verified 02/01/18 13:09 Penicillins Allergy Shortness Verified 02/01/18 13:09 of Breath ED Review of Systems ROS: Stated complaint: SOB Other details as noted in HPI Comment: All other systems reviewed and negative ED Past Medical Hx - Past Medical History Hx Hypertension: Yes Hx CVA: Yes Hx Psychiatric Treatment: Yes (depression paranoid schizophrenia) Hx COPD: Yes (no home O2) Additional medical history: chronic back pain and right hip arthritis - Surgical History Additional Surgical History: Right wrist orthopedic repair, left rotator cuff surgery - Social History Smoking Status: Never Smoker Substance Use Type: None - Medications Home Medications: Home Medications Medication Instructions Recorded Confirmed Last Taken Type amLODIPine [Norvasc] 1 mg PO DAILY 06/19/14 07/12/16 1 Day Ago History ~07/11/16 25 Diphenoxylate HCl/Atropine 2 each PO QID PRN #20 tablet 07/12/16 Unknown Rx [Lomotil 2.5-0.025 mg Tablet] traMADol [Ultram] 50 mg PO Q6HR PRN #14 tablet 07/12/16 Unknown Rx HYDROcodone/APAP 5-325 [[place] 1 each PO Q6HR PRN #12 tablet 07/20/16 Unknown Rx 5/325] Naproxen [Naproxen TAB] 250 mg PO BID PRN #20 tablet 07/20/16 Unknown Rx ALBUTEROL Inhaler (OR & NICU) 2 puff IH QID PRN #1 inhalation 02/01/18 Unknown Rx [ProAir HFA Inhaler] Benzonatate [Tessalon Perles] 100 mg PO Q8HR #10 capsule 02/01/18 Unknown Rx predniSONE [Deltasone] 20 mg PO QDAY #5 tab 02/01/18 Unknown Rx ED Physical Exam - General Limitations: No Limitations General appearance: alert, in no apparent distress - Head Head exam: Present: atraumatic, normocephalic - Eye Eye exam: Present: normal appearance - ENT ENT exam: Present: mucous membranes moist - Neck Neck exam: Present: normal inspection - Respiratory Respiratory exam: Present: normal lung sounds bilaterally. Absent: respiratory distress, wheezes, rales, rhonchi, chest wall tenderness, accessory muscle use, decreased breath sounds - Cardiovascular Cardiovascular Exam: Present: regular rate, normal rhythm. Absent: systolic murmur, diastolic murmur, rubs, gallop - GI/Abdominal GI/Abdominal exam: Present: soft, normal bowel sounds. Absent: distended, tenderness, guarding - Rectal Rectal exam: Present: deferred - Extremities Exam Extremities exam: Present: normal inspection - Back Exam Back exam: Present: normal inspection - Neurological Exam Neurological exam: Present: alert, oriented X3 - Psychiatric Psychiatric exam: Present: normal affect, normal mood - Skin Skin exam: Present: warm, dry, intact, normal color. Absent: rash ED Course Vital Signs 02/01/18 13:09 Temperature 98.4 F Pulse Rate 88 Respiratory 18 Rate Blood Pressure 152/104 O2 Sat by Pulse 98 Oximetry ED Medical Decision Making - Medical Decision Making Patient will have his meds refilled be discharged home. Critical care attestation.: If time is entered above; I have spent that time in minutes in the direct care of this critically ill patient, excluding procedure time. ED Disposition Clinical Impression: Acute exacerbation of chronic bronchitis Disposition: - TO HOME OR SELFCARE Is pt being admited?: No Does the pt Need Aspirin: No Condition: Stable Instructions: Chronic Bronchitis (ED) Referrals: PRIMARY CARE, [Primary Care Provider] - 3-5 Days Time of Disposition: 15:14
== END 2018-02-01 15:36 | disposition home or self-care (01) ==
LOC: ED 13:04
DX: J42 Unspecified chronic bronchitis (principal); I10 Essential (primary) hypertension; Z86.73 Personal history of transient ischemic attack (TIA), and cerebral infarction without residual deficits; F32.9 Major depressive disorder, single episode, unspecified; F20.9 Schizophrenia, unspecified
CPT/HCPCS: 99281

== ENCOUNTER 2020-05-20 11:37 | Emergency (ER) | payer MEDICARE ==
[2020-05-20 12:30] LABS: Basophils # (Auto) 0.1 K/mm3 (0.0-0.1); Basophils % (Auto) 0.8 % (0.0-1.8); Eosinophils # (Auto) 0.1 K/mm3 (0.0-0.4); Eosinophils % (Auto) 1.7 % (0.0-4.3); Hematocrit 42.9 % (35.5-45.6); Hemoglobin 14.3 gm/dl (11.8-15.2); Mean Corpuscular HGB Conc 33 % (32-34); Mean Corpuscular Volume 95 fl (84-94); Monocytes # (Auto) 0.9 K/mm3 (0.0-0.8); Monocytes % (Auto) 10.8 % (0.0-7.3); Platelet Count 226 K/mm3 (140-440); Red Blood Count 4.52 M/mm3 (3.65-5.03); Red Cell Distribution Width 14.6 % (13.2-15.2)
[2020-05-20 12:53] LABS: BUN/Creatinine Ratio 14; Blood Urea Nitrogen 14 mg/dL (9-20); Calcium 9.5 mg/dL (8.4-10.2); Hemolysis Index 11
--- NOTE | 2020-05-20 13:45 | XRay Report ---
CHEST 2 VIEWS INDICATION / CLINICAL INFORMATION: Chest Pain. COMPARISON: None available. FINDINGS: SUPPORT DEVICES: None. HEART / MEDIASTINUM: There is mild cardiomegaly. LUNGS / PLEURA: No significant pulmonary or pleural abnormality. No pneumothorax. ADDITIONAL FINDINGS: No significant additional findings. IMPRESSION: 1. Mild cardiomegaly without acute pulmonary abnormality. Signer Name: Seferino Middleton MD Signed: 05/20/2020 1:41 PM Workstation Name: [id number]
--- NOTE | 2020-05-20 13:45 | Event Note ---
ED Screening Note Date of service: 05/20/20 Time: 13:42 ED Screening Note: 55-year-old morbid obese -Congolese presents to the emergency room for chest pain shortness of breathing and wheezing. Patient reports he has a history of COPD hypertension and bronchitis. Patient been using his Trilagy. He was noted that patient is satting about 91% on room air. Lung exam appreciate expiratory breath sounds but no expiratory. Tachypneic at 22 This initial assessment/diagnostic orders/clinical plan/treatment(s) is/are subject to change based on patients health status, clinical progression and re- assessment by fellow clinical providers in the ED. Further treatment and workup at subsequent clinical providers discretion. Patient/guardian urged not to elope from the ED as their condition may be serious if not clinically assessed and managed. Initial orders include:
[2020-05-21 06:54] VITALS: BP 137/78
--- NOTE | 2020-05-21 07:03 | Emergency Department Report ---
ED Chest Pain HPI - General Chief Complaint: Chest Pain Stated Complaint: CHEST PAIN Time Seen by Provider: 05/21/20 06:52 Source: patient Mode of arrival: Ambulatory Limitations: No Limitations - History of Present Illness Initial Comments: 55-year-old obese -[place] male past medical history of asthma, hypertension, CVA presents emergency department complaining of a 3-day history of epigastric left upper quadrant sharp burning pain that radiates up the center of his chest with no palliative factors symptoms seem to get worse with certain movements sometimes palpation and with certain foods he reports no diarrhea, constipation no hemoptysis no hematemesis no hematochezia no fever, chills, sweats no cough no mucus production.. MD Complaint: chest pain -: Gradual Quality: aching (And burning) Consistency: constant Worsens With: nothing Other Symptoms: acid taste in mouth, burping. denies: cough, fever, syncope, rash, leg swelling, palpitations Treatments Prior to Arrival: none - Related Data Home Medications Medication Instructions Recorded Confirmed Last Taken amLODIPine 1 mg PO DAILY 06/19/14 07/12/16 1 Day Ago ~07/11/16 25 Previous Rx's Medication Instructions Recorded Last Taken Type Diphenoxylate HCl/Atropine 2 each PO QID PRN #20 tablet 07/12/16 Unknown Rx [Lomotil 2.5-0.025 mg Tablet] traMADoL [Ultram 50 MG tab] 50 mg PO Q6HR PRN #14 tablet 07/12/16 Unknown Rx HYDROcodone/APAP 5-325 [[place] 1 each PO Q6HR PRN #12 tablet 07/20/16 Unknown Rx 5-325 mg TAB] Naproxen [Naproxen TAB] 250 mg PO BID PRN #20 tablet 07/20/16 Unknown Rx Benzonatate [Tessalon Perles] 100 mg PO Q8HR #10 capsule 02/01/18 Unknown Rx Albuterol Mdi (or & Nicu Only) 2 puff IH QID PRN #1 inhalation 05/29/18 Unknown Rx [ProAir HFA Inhaler] Azithromycin [Zithromax Z-DANIEL] 250 mg PO DAILY #6 tablet 05/29/18 Unknown Rx Prednisone [predniSONE 10 mg 10 mg PO .TAPER #1 tab.ds.pk 05/29/18 Unknown Rx (6-Day Pack, 21 Tabs)] Allergies Allergy/AdvReac Type Severity Reaction Status Date / Time ibuprofen Allergy Hives Verified 04/27/18 15:04 Penicillins Allergy Shortness Verified 04/27/18 15:04 of Breath Heart Score - HEART Score History: Slightly suspicious EKG: Normal Age: < 45 Risk factors: 1-2 risk factors Troponin: < normal limit HEART Score: 1 ED Review of Systems ROS: Stated complaint: CHEST PAIN Other details as noted in HPI Comment: All other systems reviewed and negative ED Past Medical Hx - Past Medical History Hx Hypertension: Yes Hx CVA: Yes Hx Congestive Heart Failure: No Hx Psychiatric Treatment: Yes (depression paranoid schizophrenia) Hx Asthma: Yes Hx COPD: Yes (no home O2) Additional medical history: chronic back pain and right hip arthritis - Surgical History Additional Surgical History: Right wrist orthopedic repair, left rotator cuff surgery - Social History Smoking Status: Never Smoker - Medications Home Medications: Home Medications Medication Instructions Recorded Confirmed Last Taken Type amLODIPine 1 mg PO DAILY 06/19/14 07/12/16 1 Day Ago History ~07/11/16 25 Diphenoxylate HCl/Atropine 2 each PO QID PRN #20 tablet 07/12/16 Unknown Rx [Lomotil 2.5-0.025 mg Tablet] traMADoL [Ultram 50 MG tab] 50 mg PO Q6HR PRN #14 tablet 07/12/16 Unknown Rx HYDROcodone/APAP 5-325 [[place] 1 each PO Q6HR PRN #12 tablet 07/20/16 Unknown Rx 5-325 mg TAB] Naproxen [Naproxen TAB] 250 mg PO BID PRN #20 tablet 07/20/16 Unknown Rx Benzonatate [Tessalon Perles] 100 mg PO Q8HR #10 capsule 02/01/18 Unknown Rx Albuterol Mdi (or & Nicu Only) 2 puff IH QID PRN #1 inhalation 05/29/18 Unknown Rx [ProAir HFA Inhaler] Azithromycin [Zithromax Z-DANIEL] 250 mg PO DAILY #6 tablet 05/29/18 Unknown Rx Prednisone [predniSONE 10 mg 10 mg PO .TAPER #1 tab.ds.pk 05/29/18 Unknown Rx (6-Day Pack, 21 Tabs)] ED Physical Exam - General Limitations: No Limitations General appearance: alert, in no apparent distress - Head Head exam: Present: atraumatic, normocephalic - Eye Eye exam: Present: normal appearance, PERRL, EOMI Pupils: Present: normal accommodation - ENT ENT exam: Present: normal exam, mucous membranes moist, TM's normal bilaterally - Neck Neck exam: Present: normal inspection, full ROM - Respiratory Respiratory exam: Present: normal lung sounds bilaterally. Absent: respiratory distress - Cardiovascular Cardiovascular Exam: Present: regular rate, normal rhythm. Absent: systolic murmur, diastolic murmur, rubs, gallop - GI/Abdominal GI/Abdominal exam: Present: soft, normal bowel sounds - Rectal Rectal exam: Present: deferred - Extremities Exam Extremities exam: Present: normal inspection - Back Exam Back exam: Present: normal inspection - Neurological Exam Neurological exam: Present: alert, oriented X3 - Psychiatric Psychiatric exam: Present: normal affect, normal mood - Skin Skin exam: Present: warm, dry, intact, normal color. Absent: rash ED Course Vital Signs 05/20/20 05/20/20 05/21/20 11:47 13:43 06:50 Temperature 97.6 F 97.7 F Pulse Rate 87 96 H 92 H Respiratory 14 22 20 Rate Blood Pressure 187/135 Blood Pressure 137/78 [Right] O2 Sat by Pulse 91 97 96 Oximetry THIEN score - Thien Score Age > 65: (0) No Aspirin use within the Past 7 Days: (0) No 3 or more CAD Risk Factors: (0) No 2 or more Angina events in past 24 hrs: (0) No Known CAD with more than 50% Stenosis: (0) No Elevated Cardiac Markers: (0) No ST Deviation Greater than 0.5mm: (0) No THIEN Score: 0 ED Medical Decision Making - Lab Data Result diagrams: 05/20/20 12:09 05/20/20 12:09 - EKG Data -: EKG Interpreted by Or EKG shows normal: sinus rhythm Rate: normal - EKG Data Interpretation: normal EKG - Radiology Data Radiology results: report reviewed [facility] [address] [place] [address] XRay Report Signed Patient: MONICA SAEED MR# : [id number] : 1965 Acct:[id number] Age/Sex: 55 / M ADM Date: 05/20/20 Loc: ED Attending Dr: Ordering Physician: ED DOCMD Date of Service: 05/20/20 Procedure(s): XR chest routine 2V Accession Number(s): [id number] cc: ED MD SADA Fluoro Time In Minutes: CHEST 2 VIEWS INDICATION / CLINICAL INFORMATION: Chest Pain. COMPARISON: None available. FINDINGS: SUPPORT DEVICES: None. HEART / MEDIASTINUM: There is mild cardiomegaly. LUNGS / PLEURA: No significant pulmonary or pleural abnormality. No pneumo thorax. ADDITIONAL FINDINGS: No significant additional findings. IMPRESSION: 1. Mild cardiomegaly without acute pulmonary abnormality. Signer Name: Seferino Middleton MD Signed: 05/20/2020 1:41 PM Workstation Name: [id number] Transcribed By: LEIGH ANN Dictated By: Seferino Middleton MD Electronically Authenticated By: Seferino Middleton MD Signed Date/Time: 05/20/20 1341 DD/ 1340 TD/TT: - Medical Decision Making This patient presents with chest pain that is very unlikely angina or acute coronary syndrome. The emergency department evaluation has not identified any cause for suspicion that this chest pain has a cardiac etiology. Based on their history, EKG (which showed no evidence of ischemia or infarction) and imaging, in addition to the patient's physical exam, I see no evidence at this time for a malignant etiology for the patient's chest pain. There is no acute evidence for pulmonary embolus, acute myocardial infarction, pneumothorax, Boerhaeve syndrome, cardiac tamponade, thoracic artery dissection, or any other emergent cardiac, pulmonary or aortic pathology. Given the low pre-test probability for cardiac etiology of chest pain and the absence of any sign of ischemia or infarction, discharge for outpatient follow-up and further evaluation is reasonable. I have explained to the patient that even though a cardiac problem is very unlikely, follow-up and further testing is required to reduce further the already small uncertainty that exists. Other life-threatening diagnoses have been considered. The patient understands the need to return immediately if their symptoms worsen or they develop any new symptoms, and not to engage in any significant exertional activity until follow-up is obtained. Critical care attestation.: If time is entered above; I have spent that time in minutes in the direct care of this critically ill patient, excluding procedure time. ED Disposition Clinical Impression: Chest pain in adult Clinical Impression: (Ruled Out): Arthritis Disposition: DC-01 TO HOME OR SELFCARE Is pt being admited?: No Does the pt Need Aspirin: No Condition: Stable Instructions: Chest Pain (ED), Nonspecific Chest Pain, Adult, Chest Wall Pain, [id number] Additional Instructions: Palpitations follow-up with his primary care provider for further evaluation of his chest dysuria may be considered following up with gastroenterology for EGD and cardiology for repeat stress test Referrals: Jerald CORTES MD [Primary Care Provider] - 3-5 Days
== END 2020-05-21 07:00 | disposition home or self-care (01) ==
LOC: ED 11:37
DX: R07.9 Chest pain, unspecified (principal); I10 Essential (primary) hypertension; J44.9 Chronic obstructive pulmonary disease, unspecified; F20.0 Paranoid schizophrenia; Z98.890 Other specified postprocedural states; Z79.899 Other long term (current) drug therapy; Z86.73 Personal history of transient ischemic attack (TIA), and cerebral infarction without residual deficits; Z88.6 Allergy status to analgesic agent; Z88.0 Allergy status to penicillin
CPT/HCPCS: 36415; 71046; 80048; 83880; 84484; 85025; 93005

== ENCOUNTER 2020-09-04 07:48 | Day surgery (SDC) | payer MEDICARE ==
[2020-09-04] MEDS ORDERED: ASPIRIN EC 325 MG TAB PO ONE (08:14)
[2020-09-04 08:37] LABS: Basophils # (Auto) 0.1 K/mm3 (0.0-0.1); Basophils % (Auto) 1.2 % (0.0-1.8); Eosinophils # (Auto) 0.2 K/mm3 (0.0-0.4); Eosinophils % (Auto) 2.9 % (0.0-4.3); Hemoglobin 13.4 gm/dl (11.8-15.2); Lymphocytes # (Auto) 1.9 K/mm3 (1.2-5.4); Lymphocytes % (Auto) 24.3 % (13.4-35.0); Mean Corpuscular HGB Conc 33 % (32-34); Mean Corpuscular Volume 94 fl (84-94); Monocytes # (Auto) 0.8 K/mm3 (0.0-0.8); Monocytes % (Auto) 9.6 % (0.0-7.3); Platelet Count 220 K/mm3 (140-440); Red Blood Count 4.36 M/mm3 (3.65-5.03); Red Cell Distribution Width 14.4 % (13.2-15.2)
[2020-09-04 08:50] LABS: INR 1.07 (0.87-1.13)
[2020-09-04 08:51] LABS: Partial Thromboplastin Time 28.6 Sec. (24.2-36.6)
[2020-09-04] MEDS ORDERED: SODIUM CHLORIDE 0.9% 500 ML 500 ML IV SCH (09:00)
[2020-09-04 09:18] LABS: BUN/Creatinine Ratio 14; Blood Urea Nitrogen 15 mg/dL (9-20); Calcium 8.9 mg/dL (8.4-10.2); Hemolysis Index 1
[2020-09-04] MEDS ORDERED: HEPARIN/NS 5000 UNIT/500ML 1,000 ML IR ONE (09:21)
[2020-09-04] MEDS ORDERED: NITROGLYCERIN SYRINGE 3 ML ONE (09:22)
[2020-09-04] MEDS ORDERED: LIDOCAINE (2%) 20 MG/1 ML VIAL 20 ML MDV INFILTRATI ONE (09:22)
[2020-09-04] MEDS ORDERED: MIDAZOLAM 2 MG/2 ML INJ ONE (09:46)
[2020-09-04] MEDS: fentaNYL 100 MCG/2 ML INJ ONE ×2 (10:01→10:05)
[2020-09-04] MEDS: VERAPAMIL 5 MG/2 ML INJ ONE ×2 (10:02→10:06)
[2020-09-04] MEDS: HEPARIN 10,000 UNITS/10 ML VIAL ONE ×2 (10:02→10:06)
[2020-09-04] MEDS ORDERED: NITROGLYCERIN 600 MCG/3 ML SYRINGE ART-SHEATH ONE ×2 (10:03→10:06)
[2020-09-04] MEDS ORDERED: hydrALAZINE 20 MG/1 ML INJ ONE (10:20)
[2020-09-04] MEDS ORDERED: traMADol 50 MG TAB PO PRN (10:37)
[2020-09-04] MEDS ORDERED: cloNIDine 0.1 MG TAB PO PRN (10:38)
--- NOTE | 2020-09-04 10:41 | Discharge Summary ---
Short Stay Discharge Plan Activity: advance as tolerated Weight Bearing Status: Full Weight Bearing Diet: low fat, low cholesterol, low salt Wound: keep clean and dry Special Instructions: smoking cessation, no heavy lifting (3 days) Follow up with: Jerald CORTES MD [Primary Care Provider] - 7 Days KO MALONE MD [Staff Physician] - 7 Days
--- NOTE | 2020-09-04 10:42 | Cardiac Catherization Report ---
CARDIAC CATHETERIZATION REPORT REASON FOR PROCEDURE: Abnormal thallium stress test. PROCEDURES: 1. Left heart catheterization. 2. Selective left and right coronary angiography. 3. Left ventricular angiography. 4. Sedation time, start 10:01, end 10:20. DESCRIPTION OF PROCEDURE: The patient was prepped and draped in a sterile fashion after informed consent. I was present for the entire procedure and supervised the moderate sedation protocol. The right radial cath site was prepped and draped after a negative Tone's test. The right radial artery was entered using Seldinger technique followed by placement of a 6-Welsh hydrophilic sheath. Routine radial cocktail was administered via the sheath. Selective left and right coronary angiography was performed using #3.5 left Robbie, and a #4 right Robbie. A pigtail catheter was used for left ventricular angiography. The catheters were removed, sheath removed, hemostasis achieved using a TR band. The patient was returned to the postprocedure unit in stable condition. There were no complications. FINDINGS: HEMODYNAMICS: Left ventricular end-diastolic pressure was 36, following coronary angiography. Ascending aortic pressure is 183/84. There was no significant pressure gradient on pullback across the aortic valve. CORONARY ANGIOGRAPHY: The left main coronary artery was angiographically normal. The left anterior descending artery and its diagonal branches were angiographically normal. The circumflex artery and its obtuse marginal branches were angiographically normal. The right coronary artery was dominant and similarly angiographically normal. Left ventricle was mildly to moderately dilated. There was moderately severe left ventricular systolic dysfunction with diffuse hypokinesis. Left ventricular ejection fraction was estimated at 30-35%. CONCLUSION: 1. Angiographically normal coronary arteries. 2. Dilated, nonischemic cardiomyopathy, moderately severe left ventricular systolic dysfunction, ejection fraction 30-35%. RECOMMENDATION: Risk factor modification, medical therapy for nonischemic cardiomyopathy. JOB# [id number] CA/NTS
[2020-09-04] MEDS ORDERED: FUROSEMIDE 40 MG/4 ML INJ IV ONE (11:38)
[2020-09-04] MEDS ORDERED: SODIUM CHLORIDE 0.9% 1000 ML 1,000 ML IV SCH (11:45)
[2020-09-04 13:39] VITALS: BP 116/89
--- NOTE | 2020-09-05 17:07 | Electrocardiograph Report ---
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
== END 2020-09-04 14:06 | disposition home or self-care (01) ==
LOC: CATHLABREC 07:48
PROVIDERS: ATTEND Internal Medicine Cardiovascular Disease
DX: R94.39 Abnormal result of other cardiovascular function study (principal); I42.0 Dilated cardiomyopathy; Z88.0 Allergy status to penicillin; Z79.899 Other long term (current) drug therapy; Z79.82 Long term (current) use of aspirin; Z87.891 Personal history of nicotine dependence; I20.8 Other forms of angina pectoris; J44.9 Chronic obstructive pulmonary disease, unspecified; M19.90 Unspecified osteoarthritis, unspecified site; F32.9 Major depressive disorder, single episode, unspecified; Z98.890 Other specified postprocedural states; I10 Essential (primary) hypertension; Z82.49 Family history of ischemic heart disease and other diseases of the circulatory system
CPT/HCPCS: 36415; 80048; 85025; 85610; 85730; 93005; 93458; 99156; C1894; J0360; J1644; J1940; J2250; J3010; J7040; 96374; Q9967

== ENCOUNTER 2021-02-15 11:36 | Emergency (ER) | payer MEDICARE ==
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
[2021-02-15 13:12] LABS: Basophils # (Auto) 0.1 K/mm3 (0.0-0.1); Basophils % (Auto) 0.7 % (0.0-1.8); Eosinophils # (Auto) 0.2 K/mm3 (0.0-0.4); Eosinophils % (Auto) 2.4 % (0.0-4.3); Hematocrit 45.6 % (35.5-45.6); Hemoglobin 15.4 gm/dl (11.8-15.2); Lymphocytes # (Auto) 1.6 K/mm3 (1.2-5.4); Lymphocytes % (Auto) 20.7 % (13.4-35.0); Mean Corpuscular HGB Conc 34 % (32-34); Mean Corpuscular Volume 98 fl (84-94); Monocytes # (Auto) 0.7 K/mm3 (0.0-0.8); Monocytes % (Auto) 8.6 % (0.0-7.3); Platelet Count 197 K/mm3 (140-440); Red Blood Count 4.66 M/mm3 (3.65-5.03); Red Cell Distribution Width 13.8 % (13.2-15.2)
--- NOTE | 2021-02-15 13:13 | XRay Report ---
CHEST 1 VIEW INDICATION / CLINICAL INFORMATION: dizziness. COMPARISON: 05/20/2020 FINDINGS: SUPPORT DEVICES: None. HEART / MEDIASTINUM: Stable. LUNGS / PLEURA: No significant pulmonary or pleural abnormality. No pneumothorax. ADDITIONAL FINDINGS: No significant additional findings. IMPRESSION: 1. No acute findings. Signer Name: Julian Younger MD Signed: 02/15/2021 1:09 PM Workstation Name: [id number]
[2021-02-15 13:24] LABS: Partial Thromboplastin Time 30.3 Sec. (24.2-36.6)
[2021-02-15 13:28] LABS: Alanine Aminotransferase 20 units/L (7-56); Albumin 4.1 g/dL (3.9-5); BUN/Creatinine Ratio 11; Blood Urea Nitrogen 12 mg/dL (9-20); Calcium 9.4 mg/dL (8.4-10.2); Hemolysis Index 4
[2021-02-15 13:30] LABS: Bilirubin,Direct < 0.2 mg/dL (0-0.2)
--- NOTE | 2021-02-15 13:56 | Cat Scan Report ---
CT HEAD WITHOUT CONTRAST INDICATION / CLINICAL INFORMATION: dizziness. TECHNIQUE: All CT scans at this location are performed using CT dose reduction for ALARA by means of automated exposure control. COMPARISON: CT head 09/23/2016 FINDINGS: HEMORRHAGE: None. ACUTE INFARCTION: No Significant Abnormality MASS/MASS EFFECT: No Significant Abnormality CEREBRAL PARENCHYMA: No acute focal attenuation abnormality. VENTRICULAR SYSTEM: Normal in size and morphology for the patient's age. ORBITS: Normal as visualized. SKULL: No significant abnormality. PARANASAL SINUSES / MASTOID AIR CELLS: Normal as visualized. ADDITIONAL FINDINGS: None. IMPRESSION: 1. No acute intracranial abnormality. Signer Name: Julian Younger MD Signed: 02/15/2021 1:51 PM Workstation Name: [id number]
[2021-02-15 15:01] LABS: Bilirubin,Urine NEG (Negative); Blood,Urine NEG (Negative); Color,Urine Yellow (Yellow); Protein,Urine <15 mg/dL mg/dL (Negative); RBC,Urine < 1.0 /HPF (0.0-6.0); Urobilinogen,Urine < 2.0 mg/dL (<2.0); WBC,Urine < 1.0 /HPF (0.0-6.0)
[2021-02-15 15:03] LABS: Amphetamine Screen,Urine Negative; Benzodiazepines Screen,Urine Negative; Cannabinoid Screen,Urine Negative; Methadone Screen,Urine Negative; Opiate Screen,Urine Negative
[2021-02-15 15:19] LABS: Cocaine Screen,Urine Positive
[2021-02-15 15:40] VITALS: BP 165/113
[2021-02-15] MEDS ORDERED: hydroCHLOROthiazide 25 MG TAB PO ONE (15:45)
--- NOTE | 2021-02-16 10:50 | Electrocardiograph Report ---
[facility] Test Date: 2021-02-15 Test Time: 14:08:43 Pat Name: MONICA SAEED Department: Room: Gender: M Escort Blind: ELVIS : 1965 Requested By: PRISCILLA QUINN Order Number: [id number] Reading MD: Ihsan Whitmore Measurements Intervals [place] Rate: 83 P: 50 [place]: 189 QRS: 36 QRSD: 97 T: 41 QT: 380 QTc: 448 Interpretive Statements Sinus rhythm Compared to ECG 09/04/2020 08:54:45 No significant changenoted. Electronically Signed On 02-16-2021 10:50:13 EDT by Ihsan Whitmore
== END 2021-02-15 16:54 | disposition home or self-care (01) ==
LOC: ED 11:36
DX: R42 Dizziness and giddiness (principal); I10 Essential (primary) hypertension; F14.10 Cocaine abuse, uncomplicated; Z86.73 Personal history of transient ischemic attack (TIA), and cerebral infarction without residual deficits; M19.90 Unspecified osteoarthritis, unspecified site; J44.9 Chronic obstructive pulmonary disease, unspecified; M54.9 Dorsalgia, unspecified; Z98.890 Other specified postprocedural states; Z87.891 Personal history of nicotine dependence; Z88.0 Allergy status to penicillin; Z88.6 Allergy status to analgesic agent
CPT/HCPCS: 36415; 70450; 71045; 80048; 80076; 80307; 81001; 84484; 85025; 85610; 85730; 93005; 99284

== ENCOUNTER 2021-12-01 15:00 | Emergency (ER) | payer MEDICARE ==
[2021-12-02 06:20] LABS: Basophils # (Auto) 0.1 K/mm3 (0.0-0.1); Eosinophils # (Auto) 0.2 K/mm3 (0.0-0.4); Eosinophils % (Auto) 3.5 % (0.0-4.3); Hematocrit 42.9 % (35.5-45.6); Hemoglobin 14.2 gm/dl (11.8-15.2); Lymphocytes # (Auto) 2.2 K/mm3 (1.2-5.4); Mean Corpuscular HGB Conc 33 % (32-34); Mean Corpuscular Volume 98 fl (84-94); Monocytes # (Auto) 0.7 K/mm3 (0.0-0.8); Platelet Count 174 K/mm3 (140-440); Red Cell Distribution Width 13.4 % (13.2-15.2)
[2021-12-02 06:35] LABS: Alanine Aminotransferase 23 units/L (7-56); BUN/Creatinine Ratio 15; Blood Urea Nitrogen 17 mg/dL (9-20); Calcium 9.5 mg/dL (8.4-10.2); Hemolysis Index 6
[2021-12-02] MEDS ORDERED: dexAMETHasone 20 MG/5 ML VIAL IM ONE (07:58)
[2021-12-02] MEDS ORDERED: ACETAMINOPHEN 500 MG TAB PO ONE (07:59)
--- NOTE | 2021-12-02 08:28 | Emergency Department Report ---
ED General Adult HPI - General Chief complaint: Chest Pain Stated complaint: CHEST PAIN Source: EMS Mode of arrival: Stretcher Limitations: No Limitations - History of Present Illness Initial comments: 56-year-old male presents to the ED complaining of right hip pain x3 days. Demetria ulloa has a history of COPD chronic back pain and hypertension, he states that he is unable to ambulate due to his right hip pain. She states that the hip pain is a 10 out of 10. She states that hip pain has caused him to have intermittent chest pain. He states that he is waiting on his Medicaid [employer] to send his medication in the mail. Patient states that he is ambulating with a cane at present time. He was brought into EMS. Patient denies any fever chill, shortness of breath nausea or vomiting. Severity scale (0 -10): 10 - Related Data Home Medications Medication Instructions Recorded Confirmed Last Taken amLODIPine 5 mg PO DAILY 06/19/14 09/04/20 08/28/20 10 mg Aspirin EC [Halfprin EC] 81 mg PO DAILY 09/04/20 09/04/20 09/03/20 81 mg Fluticasone/Umeclidin/Vilanter 1 puff INHALATION DAILY 09/04/20 09/04/20 09/04/20 08:42 [Trelegy Ellipta 100-62.5-25(Nf)] 1 puff Gabapentin 400 mg PO PRN PRN 09/04/20 09/04/20 05/15/20 400 mg hydroCHLOROthiazide 12.5 mg PO DAILY 09/04/20 09/04/20 Unknown [Hydrochlorothiazide] Previous Rx's Medication Instructions Recorded Last Taken Type Albuterol Mdi (or & Nicu Only) 2 puff IH QID PRN #1 inhalation 05/29/18 08/21/20 Rx [ProAir HFA Inhaler] 2 puffs hydroCHLOROthiazide [HCTZ] 25 mg PO QDAY #30 tablet 02/15/21 Unknown Rx methOCARBAMOL [Robaxin TAB] 500 mg PO Q6H PRN 15 Days #30 tab 12/02/21 Unknown Rx predniSONE [Deltasone] 20 mg PO QDAY 5 Days #5 tab 12/02/21 Unknown Rx traMADoL [Ultram] 50 mg PO Q6HR PRN 3 Days #12 tablet 12/02/21 Unknown Rx Allergies Allergy/AdvReac Type Severity Reaction Status Date / Time ibuprofen Allergy Hives Verified 04/27/18 15:04 Penicillins Allergy Shortness Verified 04/27/18 15:04 of Breath ED Review of Systems ROS: Stated complaint: CHEST PAIN Other details as noted in HPI Constitutional: denies: chills, fever Eyes: denies: eye pain, eye discharge, vision change ENT: denies: ear pain, throat pain Respiratory: denies: cough, shortness of breath, wheezing Cardiovascular: denies: chest pain, palpitations Endocrine: no symptoms reported Gastrointestinal: denies: abdominal pain, nausea, diarrhea Genitourinary: denies: urgency, dysuria Musculoskeletal: arthralgia. denies: back pain, joint swelling Skin: denies: rash, lesions Neurological: denies: headache, weakness, paresthesias Psychiatric: denies: anxiety, depression Hematological/Lymphatic: denies: easy bleeding, easy bruising ED Past Medical Hx - Past Medical History Hx Hypertension: Yes Hx CVA: Yes Hx Congestive Heart Failure: No Hx Arthritis: Yes Hx Psychiatric Treatment: Yes (depression paranoid schizophrenia) Hx Asthma: Yes Hx COPD: Yes (no home O2) Additional medical history: chronic back pain and right hip arthritis - Surgical History Additional Surgical History: Right wrist orthopedic repair, left rotator cuff surgery - Social History Smoking Status: Former Smoker Substance Use Type: Alcohol - Medications Home Medications: Home Medications Medication Instructions Recorded Confirmed Last Taken Type amLODIPine 5 mg PO DAILY 06/19/14 09/04/20 08/28/20 History 10 mg Albuterol Mdi (or & Nicu Only) 2 puff IH QID PRN #1 inhalation 05/29/18 09/04/20 08/21/20 Rx [ProAir HFA Inhaler] 2 puffs Aspirin EC [Halfprin EC] 81 mg PO DAILY 09/04/20 09/04/20 09/03/20 History 81 mg Fluticasone/Umeclidin/Vilanter 1 puff INHALATION DAILY 09/04/20 09/04/20 09/04/20 08:42 History [Alonso Maurice 100-62.5-25(Nf)] 1 puff Gabapentin 400 mg PO PRN PRN 09/04/20 09/04/20 05/15/20 History 400 mg hydroCHLOROthiazide 12.5 mg PO DAILY 09/04/20 09/04/20 Unknown History [Hydrochlorothiazide] hydroCHLOROthiazide [HCTZ] 25 mg PO QDAY #30 tablet 02/15/21 Unknown Rx methOCARBAMOL [Robaxin TAB] 500 mg PO Q6H PRN 15 Days #30 tab 12/02/21 Unknown Rx predniSONE [Deltasone] 20 mg PO QDAY 5 Days #5 tab 12/02/21 Unknown Rx traMADoL [Ultram] 50 mg PO Q6HR PRN 3 Days #12 tablet 12/02/21 Unknown Rx ED Physical Exam - General Limitations: No Limitations General appearance: alert, in no apparent distress - Head Head exam: Present: atraumatic, normocephalic - Eye Eye exam: Present: normal appearance - ENT ENT exam: Present: mucous membranes moist - Neck Neck exam: Present: normal inspection - Respiratory Respiratory exam: Present: normal lung sounds bilaterally. Absent: respiratory distress - Cardiovascular Cardiovascular Exam: Present: regular rate, normal rhythm. Absent: systolic murmur, diastolic murmur, rubs, gallop - GI/Abdominal GI/Abdominal exam: Present: soft, normal bowel sounds - Rectal Rectal exam: Present: deferred - Extremities Exam Extremities exam: Present: normal inspection - Back Exam Back exam: Present: normal inspection - Neurological Exam Neurological exam: Present: alert, oriented X3 - Psychiatric Psychiatric exam: Present: normal affect, normal mood - Skin Skin exam: Present: warm, dry, intact, normal color. Absent: rash ED Course Vital Signs 12/01/21 12/02/21 15:34 08:41 Temperature 98.2 F Pulse Rate 75 76 Respiratory 18 16 Rate Blood Pressure 148/100 122/75 [Left] O2 Sat by Pulse 99 99 Oximetry ED Medical Decision Making - Lab Data Result diagrams: 12/02/21 05:55 12/02/21 05:55 - EKG Data EKG shows normal: sinus rhythm - EKG Data When compared to previous EKG there are: no significant change normal sonus rate 65 12/02/21 09:54 - Medical Decision Making 56-year-old male presents to the ED complaining of right hip pain x3 days. Patient has a history of COPD chronic back pain and hypertension, he states that he is unable to ambulate due to his right hip pain. She states that the hip pain is a 10 out of 10. She states that hip pain has caused him to have intermittent chest pain. He states that he is waiting on his Medicaid [employer] to send his medication in the mail. Patient states that he is ambulating with a cane at present time. He was brought into EMS. Patient denies any fever chill, shortness of breath nausea or vomiting. Patient given Tylenol 1 g and Decadron 10 mg IM. Patient states pain is a 0 out of 10 Rechecked the patient is resting quietly quietly and comfortable and feeling better. I discussed the results of diagnostic study, my clinical impression and the plan for further treatment with the patient. Patient agrees with plan and discharge at this present time. All question addressed. I have given the patient instruction regarding a diagnosis ,expectation ,follow- up and return precaution. I explained to the patient that emergent condition may arise and to return to the ED for new worsen and any new persisting condition. I have explained the importance of following up with the primary care physician or referral physician listed below has instructed. The patient verbalized understanding of discharge instruction. Critical care attestation.: If time is entered above; I have spent that time in minutes in the direct care of this critically ill patient, excluding procedure time. ED Disposition Clinical Impression: Right hip pain Chest pain Qualifiers: Chest pain type: other chest pain Qualified Code(s): R07.89 - Other chest pain; R07.8 - Other chest pain Disposition: 01 HOME / SELF CARE / HOMELESS Is pt being admited?: No Does the pt Need Aspirin: No Condition: Stable Instructions: Nonspecific Chest Pain, Adult, Hip Pain, Musculoskeletal Pain Additional Instructions: Take medication as prescribed Return to ED for any worsening symptom Prescriptions: predniSONE [Deltasone] 20 mg PO QDAY 5 Days #5 tab methOCARBAMOL [Robaxin TAB] 500 mg PO Q6H PRN 15 Days #30 tab PRN Reason: Pain, Mild (1-3) traMADoL [Ultram] 50 mg PO Q6HR PRN 3 Days #12 tablet PRN Reason: Pain Referrals: BENY SCHNEIDER MD [Primary Care Provider] - 3-5 Days Forms: Work/School Release Form(ED) Time of Disposition: 09:53
[2021-12-02 08:42] VITALS: BP 122/75
--- NOTE | 2021-12-02 09:00 | Electrocardiograph Report ---
[facility] Test Date: 2021-12-01 Test Time: 15:44:47 Pat Name: MONICA SAEED Department: Room: Gender: M Manager It Training: 0000 : 1965 Requested By: MAI GILL Order Number: [id number] Reading MD: Osorio Troncoso Measurements Intervals [place] Rate: 65 P: 34 AR: 175 QRS: -1 QRSD: 86 T: 42 QT: 396 QTc: 414 Interpretive Statements Sinus rhythm Compared to ECG 02/15/2021 14:08:43 No significant changes Electronically Signed On 12-02-2021 9:00:01 EDT by Osorio Troncoso
--- NOTE | 2021-12-02 17:45 | XRay Report ---
RIGHT HIP 2 VIEW(S) INDICATION / CLINICAL INFORMATION: hip pain COMPARISON: None available. FINDINGS: BONES / JOINT(S): No acute fracture or subluxation. Moderate bilateral hip DJD. There is degenerative disc disease lower lumbar spine. SOFT TISSUES: No significant abnormality. ADDITIONAL FINDINGS: None. Signer Name: Jose Ye DO Signed: 12/02/2021 5:38 PM Workstation Name: [id number]
--- NOTE | 2021-12-02 17:45 | XRay Report ---
CHEST 2 VIEWS INDICATION / CLINICAL INFORMATION: chest pain. COMPARISON: February 17, 2021 FINDINGS: SUPPORT DEVICES: None. HEART / MEDIASTINUM: No significant abnormality. LUNGS / PLEURA: No significant pulmonary or pleural abnormality. No pneumothorax. ADDITIONAL FINDINGS: No significant additional findings. IMPRESSION: 1. No acute findings. Signer Name: Jose Ye DO Signed: 12/02/2021 5:38 PM Workstation Name: [email or web address]
== END 2021-12-02 10:16 | disposition home or self-care (01) ==
LOC: ED 15:00
DX: M25.551 Pain in right hip (principal); R07.9 Chest pain, unspecified
CPT/HCPCS: 36415; 71046; 73502; 80053; 84484; 85025; 93005; 96372; 99284; J1100